=== PATIENT | male | born 1980 ===

== ENCOUNTER 2019-12-03 08:23 | Inpatient (IN) ==
[2019-12-03] MEDS ORDERED: fentaNYL 100 MCG/2 ML VIAL ONE (08:32)
[2019-12-03] MEDS ORDERED: MIDAZOLAM 2 MG/2 ML VIAL ONE (08:32)
[2019-12-03] MEDS ORDERED: LIDOCAINE 1% 20 ML VIAL ONE (08:32)
[2019-12-03] MEDS ORDERED: TIROFIBAN 5,000 MCG/100 ML PREMIX IV ONE (08:47)
[2019-12-03] MEDS ORDERED: TIROFIBAN 5,000 MCG/100 ML PREMIX IV SCH (08:54)
[2019-12-03] MEDS ORDERED: TICAGRELOR 90 MG TABLET ONE (09:53)
[2019-12-03] MEDS ORDERED: DEXTROSE 50% 25 GM/50 ML VIAL IV PRN ×2 (10:02→15:30)
[2019-12-03] MEDS ORDERED: ONDANSETRON 4 MG/2 ML VIAL IV PRN (10:02)
[2019-12-03] MEDS ORDERED: GLUCAGON 1 MG VIAL IM PRN (10:02)
[2019-12-03] MEDS ORDERED: ZALEPLON 5 MG CAPSULE PO PRN (10:02)
[2019-12-03] MEDS ORDERED: ALUMINUM/MAGNES/SIMETH MAX STR 30 ML UDCUP PO PRN (10:10)
[2019-12-03] MEDS ORDERED: traMADol 50 MG TABLET PO PRN (10:10)
[2019-12-03] MEDS ORDERED: SODIUM CHLORIDE 0.9% 1,000 ML IV SCH (10:30)
[2019-12-03 11:56] LABS: Albumin 2.7 G/DL (3.4-5.0); Bilirubin,Total 0.4 MG/DL (0.2-1.0); Calcium 8.4 MG/DL (8.5-10.1); Osmolality,Calculated 268.5 MOS/KG (273-304); Total Protein 7.5 G/DL (6.4-8.3)
[2019-12-03 12:24] LABS: CKMB % 2.8 %
[2019-12-03] MEDS ORDERED: MAGNESIUM HYDROXIDE SUSP 30 ML UDCUP PO PRN (15:31)
[2019-12-03] MEDS ORDERED: CYCLOBENZAPRINE 10 MG TABLET PO PRN (15:31)
[2019-12-03] MEDS ORDERED: diphenhydrAMINE CAP 25 MG CAPSULE PO PRN (15:31)
[2019-12-03] MEDS: INSULIN REGULAR 100 UNIT/ML SUBCUT SCH ×2 (16:33→22:02)
[2019-12-03 18:03] LABS: Basophils % 0.2 % (0.0-0.8); Eosinophils % 0.1 % (0.00-10.9); Hematocrit 35.6 VOL% (42.0-52.0); Hemoglobin 11.9 GM/DL (14.0-18.0); Immature Granulocytes % 0.6 %; Immature Granulocytes Absolute 0.12 #; Lymphocytes # 1.8 10*3/uL (1.4-4.0); Lymphocytes % 9.1 % (21.2-54.2); Mean Corpuscular HGB Conc 33.4 GM/DL (32-36); Mean Corpuscular Volume 85.6 FL (87-102); Mean Platelet Volume 10.4 FL (9.6-12.0); Monocytes % 8.6 % (1.7-12.7); Neutrophils % 81.4 % (38.7-73.9); Platelet Count 227 T/CUMM (130-400); Red Blood Count 4.16 MC/CUMM (3.8-5.5); Red Cell Distribution Width 19.2 % (9.3-17.3); White Blood Count 19.7 T/CUMM (4-12)
[2019-12-03 19:01] LABS: Barbiturates Screen,Urine Negative (Negative); Benzodiazepines Screen,Urine Positive (Negative); Cannabinoid Screen,Urine Positive (Negative); Opiate Screen,Urine Positive (Negative); Phencyclidine Screen,Urine Negative (Negative)
[2019-12-03] MEDS ORDERED: ARIPiprazole 15 MG TABLET PO SCH (21:00)
[2019-12-03] MEDS: TICAGRELOR 90 MG TABLET PO SCH (21:53)
[2019-12-03] MEDS: ROSUVASTATIN 20 MG TABLET PO SCH (21:54)
[2019-12-03] MEDS: ARIPiprazole 10 MG TABLET PO SCH (21:54)
[2019-12-03] MEDS: carvediloL 6.25 MG TABLET PO SCH (21:55)
[2019-12-04 04:54] LABS: Basophils % 0.2 % (0.0-0.8); Eosinophils % 0.2 % (0.00-10.9); Hematocrit 35.3 VOL% (42.0-52.0); Hemoglobin 11.7 GM/DL (14.0-18.0); Immature Granulocytes % 0.7 %; Immature Granulocytes Absolute 0.12 #; Lymphocytes # 2.1 10*3/uL (1.4-4.0); Lymphocytes % 12.1 % (21.2-54.2); Mean Corpuscular HGB Conc 33.1 GM/DL (32-36); Mean Corpuscular Volume 84.4 FL (87-102); Mean Platelet Volume 10.8 FL (9.6-12.0); Neutrophils % 78.8 % (38.7-73.9); Platelet Count 192 T/CUMM (130-400); Red Blood Count 4.18 MC/CUMM (3.8-5.5); Red Cell Distribution Width 19.1 % (9.3-17.3); White Blood Count 17.2 T/CUMM (4-12)
[2019-12-04] MEDS: ENOXAPARIN 40 MG/0.4 ML SYRINGE SUBCUT SCH (05:09)
[2019-12-04 05:16] LABS: Calcium 8.3 MG/DL (8.5-10.1); Osmolality,Calculated 275.4 MOS/KG (273-304)
[2019-12-04 05:46] LABS: CKMB % 2.5 %; Calcium 8.4 MG/DL (8.5-10.1); Osmolality,Calculated 273.4 MOS/KG (273-304); Risk Ratio 2.21; VLDL CHOLESTEROL 21.8 MG/DL
[2019-12-04 05:47] LABS: Troponin I 51.6 NG/ML (0.00-0.045)
[2019-12-04] MEDS: INSULIN REGULAR 100 UNIT/ML SUBCUT SCH ×4 (07:40→21:25)
[2019-12-04] MEDS: NICOTINE 14 MG/24 HR PATCH TRANSDERM SCH (08:25)
[2019-12-04] MEDS: glipiZIDE 10 MG TABLET PO SCH (08:25)
[2019-12-04] MEDS: carvediloL 6.25 MG TABLET PO SCH ×2 (08:25→21:25)
[2019-12-04] MEDS: LUBIPROSTONE 24 MCG CAPSULE PO SCH (08:25)
[2019-12-04] MEDS: TICAGRELOR 90 MG TABLET PO SCH ×2 (08:25→21:25)
[2019-12-04] MEDS: LOSARTAN 25 MG TABLET PO SCH (08:25)
[2019-12-04] MEDS: ASPIRIN EC 81 MG TABLET PO SCH (08:25)
[2019-12-04] MEDS: CALCIUM CARBONATE CHEW 500 MG TABLET PO SCH (08:35)
[2019-12-04] MEDS ORDERED: lisinopriL 2.5 MG TABLET PO SCH (09:00)
[2019-12-04] MEDS ORDERED: MAGNESIUM SULF RIDER 4 GM in PREMIX 1 EACH IV ONE (11:36)
[2019-12-04] MEDS: INSULIN GLARGINE 100 UNIT/ML SUBCUT SCH (13:49)
[2019-12-04] MEDS: ARIPiprazole 10 MG TABLET PO SCH (21:24)
[2019-12-04] MEDS: ROSUVASTATIN 20 MG TABLET PO SCH (21:25)
[2019-12-04] MEDS: hydrOXYzine HCL 25 MG TABLET PO PRN (21:25)
[2019-12-05 04:18] LABS: Basophils % 0.1 % (0.0-0.8); Eosinophils # 0.1 10*3/uL (0.0-0.87); Eosinophils % 0.6 % (0.00-10.9); Hematocrit 34.7 VOL% (42.0-52.0); Hemoglobin 11.5 GM/DL (14.0-18.0); Immature Granulocytes % 0.7 %; Lymphocytes # 2.2 10*3/uL (1.4-4.0); Lymphocytes % 15.8 % (21.2-54.2); Mean Corpuscular HGB Conc 33.1 GM/DL (32-36); Mean Corpuscular Volume 84.4 FL (87-102); Mean Platelet Volume 11.3 FL (9.6-12.0); Monocytes % 8.6 % (1.7-12.7); Neutrophils % 74.2 % (38.7-73.9); Platelet Count 239 T/CUMM (130-400); Red Blood Count 4.11 MC/CUMM (3.8-5.5); Red Cell Distribution Width 18.5 % (9.3-17.3)
[2019-12-05 04:35] LABS: Calcium 8.8 MG/DL (8.5-10.1); Osmolality,Calculated 272.8 MOS/KG (273-304)
[2019-12-05] MEDS: ENOXAPARIN 40 MG/0.4 ML SYRINGE SUBCUT SCH (06:09)
[2019-12-05] MEDS ORDERED: MAGNESIUM SULF RIDER 2 GM in PREMIX 1 EACH IV PRN (06:44)
[2019-12-05] MEDS: INSULIN REGULAR 100 UNIT/ML SUBCUT SCH ×4 (07:23→21:19)
[2019-12-05] MEDS: LUBIPROSTONE 24 MCG CAPSULE PO SCH (08:12)
[2019-12-05] MEDS: TICAGRELOR 90 MG TABLET PO SCH ×2 (08:14→21:15)
[2019-12-05] MEDS: ASPIRIN EC 81 MG TABLET PO SCH (08:14)
[2019-12-05] MEDS: carvediloL 6.25 MG TABLET PO SCH ×2 (08:14→21:15)
[2019-12-05] MEDS: LOSARTAN 25 MG TABLET PO SCH (08:15)
[2019-12-05] MEDS: INSULIN GLARGINE 100 UNIT/ML SUBCUT SCH (08:16)
[2019-12-05] MEDS: glipiZIDE 10 MG TABLET PO SCH (08:16)
[2019-12-05] MEDS: NICOTINE 14 MG/24 HR PATCH TRANSDERM SCH (08:19)
[2019-12-05] MEDS: CALCIUM CARBONATE CHEW 500 MG TABLET PO SCH (08:21)
[2019-12-05] MEDS ORDERED: PNEUMOCOCCAL VACCINE (23 VALENT) 0.5 ML VIAL IM ONE (09:00)
[2019-12-05] MEDS: buPROPion SR 150 MG TABLET PO SCH (10:55)
[2019-12-05] MEDS: SACUBITRIL/VALSARTAN 49-51 MG TABLET PO SCH ×2 (10:55→21:15)
[2019-12-05] MEDS: ROSUVASTATIN 20 MG TABLET PO SCH (21:14)
[2019-12-05] MEDS: ARIPiprazole 10 MG TABLET PO SCH (21:14)
[2019-12-05] MEDS: hydrOXYzine HCL 25 MG TABLET PO PRN (21:15)
[2019-12-06] MEDS: ENOXAPARIN 40 MG/0.4 ML SYRINGE SUBCUT SCH (05:05)
[2019-12-06 05:55] LABS: Basophils % 0.2 % (0.0-0.8); Eosinophils # 0.1 10*3/uL (0.0-0.87); Eosinophils % 1.2 % (0.00-10.9); Hemoglobin 12.3 GM/DL (14.0-18.0); Immature Granulocytes % 0.4 %; Immature Granulocytes Absolute 0.04 #; Lymphocytes # 2.2 10*3/uL (1.4-4.0); Lymphocytes % 20.4 % (21.2-54.2); Mean Corpuscular HGB Conc 33.2 GM/DL (32-36); Mean Corpuscular Volume 83.3 FL (87-102); Mean Platelet Volume 10.7 FL (9.6-12.0); Monocytes % 10.7 % (1.7-12.7); Neutrophils % 67.1 % (38.7-73.9); Platelet Count 274 T/CUMM (130-400); Red Blood Count 4.44 MC/CUMM (3.8-5.5); Red Cell Distribution Width 18.2 % (9.3-17.3); White Blood Count 10.8 T/CUMM (4-12)
[2019-12-06 06:08] LABS: Calcium 8.5 MG/DL (8.5-10.1); Osmolality,Calculated 274.7 MOS/KG (273-304)
[2019-12-06] MEDS ORDERED: MAGNESIUM SULF RIDER 2 GM in PREMIX 1 EACH IV ONE (07:43)
[2019-12-06] MEDS ORDERED: POTASSIUM CHLORIDE 20 MEQ TABLET PO ONE (07:43)
[2019-12-06] MEDS: INSULIN REGULAR 100 UNIT/ML SUBCUT SCH (08:06)
[2019-12-06 08:08] VITALS: BP 120/78
[2019-12-06] MEDS: ASPIRIN EC 81 MG TABLET PO SCH (08:36)
[2019-12-06] MEDS: CALCIUM CARBONATE CHEW 500 MG TABLET PO SCH (08:37)
[2019-12-06] MEDS: TICAGRELOR 90 MG TABLET PO SCH (08:37)
[2019-12-06] MEDS: buPROPion SR 150 MG TABLET PO SCH (08:37)
[2019-12-06] MEDS: SACUBITRIL/VALSARTAN 49-51 MG TABLET PO SCH (08:37)
[2019-12-06] MEDS: glipiZIDE 10 MG TABLET PO SCH (08:37)
[2019-12-06] MEDS: LUBIPROSTONE 24 MCG CAPSULE PO SCH (08:37)
[2019-12-06] MEDS: INSULIN GLARGINE 100 UNIT/ML SUBCUT SCH (08:38)
[2019-12-06] MEDS: NICOTINE 14 MG/24 HR PATCH TRANSDERM SCH (08:38)
[2019-12-06] MEDS ORDERED: MAGNESIUM CHLORIDE 64 MG TABLET PO SCH (09:00)
[2019-12-06] MEDS ORDERED: ASCORBIC ACID 500 MG TABLET PO SCH (09:00)
[2019-12-06] MEDS ORDERED: carvediloL 12.5 MG TABLET PO SCH (09:00)
[2019-12-07] MEDS ORDERED: POTASSIUM CHLORIDE 20 MEQ TABLET PO SCH (09:00)
[2019-12-08] MEDS ORDERED: buPROPion SR 150 MG TABLET PO SCH (09:00)
== END 2019-12-06 11:09 | disposition home or self-care (01) | DRG 246 ==
LOC: N.CL 08:23 → N.ICU 08:35 → N.TELES 12-05 18:11
PROVIDERS: ADMIT Internal Medicine Cardiovascular Disease; ATTEND Internal Medicine Cardiovascular Disease
PROC: CLCCHCL (ICD-10-PCS; 2019-12-03 08:45)